=== PATIENT | male | born 1955 | race African-American/Black ===

== ENCOUNTER 2020-01-29 17:33 | Emergency (ER) | payer MEDICAID ==
[~2020-01-29] VITALS: Ht 172.7 cm; Wt 63.5 kg
[2020-01-29 17:39] VITALS: BP 160/90
[2020-01-29] MEDS ORDERED: TETANUS-DIPTH-ACEL PERTUSSIS 0.5ML SYR Tdap IM ONE (22:30)
== END 2020-01-29 23:07 | disposition home or self-care (01) ==
LOC: EDBD 17:33 → ER 17:33
DX: M79.5 Residual foreign body in soft tissue (principal); F17.210 Nicotine dependence, cigarettes, uncomplicated; F12.10 Cannabis abuse, uncomplicated
CPT/HCPCS: 73080; 90471; 90715